=== PATIENT | female | born 1995 | race Caucasian/White ===

== ENCOUNTER 2018-03-18 09:32 | Emergency (ER) | payer BC, MEDICAID ==
[2018-03-18 09:44] VITALS: BP 109/64
--- NOTE | 2018-03-18 12:14 | EDM.PDOC ---
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 She states she has not felt any movement yet this am. She is 25 weeks gestation. Has had an uneventful thus far. No vaginal bleeding. No pain/cramping. She denies fever. States typically would note much more activity at this point of the day. Has not had any upper respiratory concerns, no cough, nausea/vomiting or urinary complaints. Onset: Today Duration: Hour(s): Location: Reports: Abdomen Associated Symptoms: Reports: No Other Symptoms - Related Data Allergies Allergy/AdvReac Type Severity Reaction Status Date / Time No Known Allergies Allergy Verified 03/18/18 09:44 Home Meds: Home Meds Pnv with Ca,No.72/Iron/Fa [Pnv Plus Multivit Tab] 1 tab PO DAILY [History] Past Medical History Respiratory History: Reports: Asthma Other Respiratory History: exercise induced.. 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: Psychiatric History: Reports: Anxiety, Depression Social & Family History - Family History Family Medical History: Noncontributory - Tobacco Use Smoking Status *Q: Current Every Day Smoker Years of Tobacco use: 7 Packs/Tins Daily: 0.5 - Caffeine Use Caffeine Use: Reports: Coffee ED ROS GENERAL - Review of Systems Review Of Systems: See Below Constitutional: Denies: Fever, Chills, Malaise, Weakness, Decreased Appetite HEENT: Reports: No Symptoms Respiratory: Reports: No Symptoms Cardiovascular: Reports: No Symptoms GI/Abdominal: Reports: No Symptoms ED EXAM - Physical Exam Exam: See Below Exam Limited By: No Limitations General Appearance: Alert, WD/WN, No Apparent Distress Ears: Normal External Exam, Normal TMs Nose: Normal Inspection, Normal Mucosa, No Blood Throat/Mouth: Normal Inspection, Normal Oropharynx Head: Normocephalic Neck: Normal Inspection, Supple, Non-Tender Respiratory/Chest: No Respiratory Distress, Lungs Clear, Normal Breath Sounds Cardiovascular: Regular Rate, Rhythm GI/Abdominal Exam: Normal Bowel Sounds Fundal Height In cm: 25 Heart Tones: Present Heart Tones per Min: 138 Movement: Active (In monitoring heart tones, did note movement by palpation as well.) Extremities: Normal Inspection, No Pedal Edema Neurological: Alert, Oriented Skin Exam: Warm, Dry Course - Vital Signs Last Recorded V/S: Last Vital Signs Temp 98.4 F 03/18/18 09:40 Pulse 75 03/18/18 09:40 Resp 16 03/18/18 09:40 BP 109/64 03/18/18 09:40 Pulse Ox 100 03/18/18 09:40 - Orders/Labs/Meds Orders: Active Orders 24 hr Category Date Time Status OB Ltd 1 or More Fetus [US] Stat Exams 03/18/18 10:23 Ordered - Re-Assessments/Exams Free Text/Narrative Re-Assessment/Exam: 03/18/18 Limited ultrasound done, good movement, lung expansion, heart tones at this point. Departure - Departure Time of Disposition: 12:13 Disposition: Home, Self-Care 01 Condition: Good Clinical Impression: Decreased movement - Discharge Information Forms: ED Department Discharge Additional Instructions: 1. Push fluids 2. Rest 3. Follow up with Kaitlyn as scheduled for usual care - My Orders Last 24 Hours: My Active Orders 03/18/18 10:23 OB Ltd 1 or More Fetus [US] Stat - Assessment/Plan Last 24 Hours: My Active Orders 03/18/18 10:23 OB Ltd 1 or More Fetus [US] Stat
== END 2018-03-18 12:20 | disposition home or self-care (01) ==
LOC: CC.ED 09:32
DX: O36.8120 Decreased fetal movements, second trimester, not applicable or unspecified (principal); O99.332 Smoking (tobacco) complicating pregnancy, second trimester; F17.210 Nicotine dependence, cigarettes, uncomplicated; Z3A.25 25 weeks gestation of pregnancy
CPT/HCPCS: 76815; 99284

== ENCOUNTER 2018-06-26 10:35 | Emergency (ER) | payer BC, MEDICAID ==
[2018-06-26 11:02] VITALS: BP 118/75
--- NOTE | 2018-06-26 11:02 | EDM.PDOC ---
ED HPI GENERAL MEDICAL PROBLEM - General Chief Complaint: General Stated Complaint: VAG BLEEDING Time Seen by Provider: 06/26/18 10:40 Source of Information: Reports: Patient History Limitations: Reports: No Limitations - History of Present Illness INITIAL COMMENTS - FREE TEXT/NARRATIVE: Is 8 days post and was doing well. Today about 0900 she started having severe cramps and has saturated 3 pads since being here. Did call EMS to pick her up due to the pain. Since being here she states that the pain has resolved and the bleeding has definitely slowed. She states that the delivery was normal. Onset: Sudden - Related Data Allergies Allergy/AdvReac Type Severity Reaction Status Date / Time No Known Allergies Allergy Verified 06/26/18 11:21 Home Meds: Home Meds Pnv with Ca,No.72/Iron/Fa [Pnv Plus Multivit Tab] 1 tab PO DAILY [History] Past Medical History Respiratory History: Reports: Asthma Other Respiratory History: exercise induced.. does not use inhaler [employer] History: Reports: Psychiatric History: Reports: Anxiety, Depression Social & Family History - Family History Family Medical History: Noncontributory - Caffeine Use Caffeine Use: Reports: Coffee ED ROS GENERAL - Review of Systems Review Of Systems: See Below Constitutional: Denies: Fever, Chills : Reports: No Symptoms ED EXAM, GENERAL - Physical Exam Exam: See Below Exam Limited By: No Limitations General Appearance: Alert, WD/WN, Mild Distress Respiratory/Chest: No Respiratory Distress, Lungs Clear, Normal Breath Sounds Cardiovascular: Regular Rate, Rhythm, No Edema (Female) Exam: Normal External Exam, Normal Speculum Exam, Normal Bimanual Exam, Cervical Discharge (small amount of dark red blod without any clots noted from cervical os. No other obvious source of bleeding noted.), Cervix Motion Tenderness Neurological: Alert, Oriented Skin Exam: Warm, Dry, Intact Course - Re-Assessments/Exams Free Text/Narrative Re-Assessment/Exam: 06/26/18 11:[address] Bella office who delivered her and it was suggested to do US and if no placenta retained could be discharged since the bleeding is subsiding. Will get US today. Departure - Departure Time of Disposition: 11:25 Disposition: Home, Self-Care 01 Condition: Good Clinical Impression: bleeding Qualifiers: hemorrhage type: delayed hemorrhage Qualified Code(s): O72.2 - Delayed and secondary hemorrhage - Discharge Information *PRESCRIPTION DRUG MONITORING PROGRAM REVIEWED*: Not Applicable *COPY OF PRESCRIPTION DRUG MONITORING REPORT IN PATIENT MARLENY: Not Applicable Additional Instructions: No heavy lifting Rest as much as possible If bleeding continues then should see Dr. Bella next week. Tylenol or advil as needed. - Problem List & Annotations (1) bleeding SNOMED Code(s): 36295449 Code(s): O72.1 - OTHER IMMEDIATE HEMORRHAGE Status: Acute Priority: High Current Visit: Yes Qualifiers: hemorrhage type: delayed hemorrhage Qualified Code(s) : O72.2 - Delayed and secondary hemorrhage - Problem List Review Problem List Initiated/Reviewed/Updated: Yes
== END 2018-06-26 11:30 | disposition home or self-care (01) ==
LOC: CC.ED 10:35
DX: O72.2 Delayed and secondary postpartum hemorrhage (principal); Z79.899 Other long term (current) drug therapy
CPT/HCPCS: 76830; 99283

== ENCOUNTER → 2019-12-23 | Day surgery (SDC) | payer BC ==
[~2019-12-23] MED LIST: Dexamethasone 4 MG/ML 5 ML MDV IV ONE; HYDROmorphone 1 MG/ML Syringe IV ONE; Ketorolac 30 MG/ML SDV IVPUSH ONE; Lactated Ringers 1,000 ML IV SCH; Midazolam 1 MG/ML 2 ML SDV IV ONE; Ondansetron 4 MG/2 ML SDV IV ONE; Propofol 200 MG/20 ML SDV IV ONE; fentaNYL 100 MCG/2 ML SDV IV ONE
[2019-12-23 13:48] VITALS: BP 119/67; PULSE 78
--- NOTE | 2019-12-23 15:07 | OR ---
DATE OF OPERATION: 12/23/2019 PREOPERATIVE DIAGNOSIS: RIGHT CARPAL TUNNEL SYNDROME. POSTOPERATIVE DIAGNOSIS: RIGHT CARPAL TUNNEL SYNDROME. SURGEON: Marlo Armando MD PROCEDURE: RELEASE OF RIGHT CARPAL TUNNEL SYNDROME. ANESTHESIA: General. ESTIMATED BLOOD LOSS: Minimum. SPECIMEN: None. INDICATIONS: This is a 24-year-old female, who has an EMG-proven symptomatic bilateral carpal tunnel syndrome, the right is worse than the left. DESCRIPTION OF PROCEDURE: After adequate preparation, a longitudinal incision was made along the wrist and down into the palm. This was taken by sharp dissection all the way down to the transverse carpal ligament. This was then sharply incised and the ligament was transected both proximally and distally. There was only minor bleeding. Packing was used for tamponade pressure. This then seemed to quell all the bleeding. The nerve tendon sheath did not seem to be too hyperemic or swollen. No other abnormalities were noted. The skin was closed with 2-0 nylon sutures. BPB/BRAULIOL /[id number]
== END ==
LOC: CC.SDS 08:34
PROVIDERS: ATTEND Surgery
DX: G56.03 Carpal tunnel syndrome, bilateral upper limbs (principal); F41.9 Anxiety disorder, unspecified; J45.909 Unspecified asthma, uncomplicated; F98.8 Other specified behavioral and emotional disorders with onset usually occurring in childhood and adolescence; F17.210 Nicotine dependence, cigarettes, uncomplicated; F32.9 Major depressive disorder, single episode, unspecified; Z11.59 Encounter for screening for other viral diseases; Z79.899 Other long term (current) drug therapy
CPT/HCPCS: 01810; 36415; 64721; 84703; 87635; J1100; J1170; J1885; J2250; J2405; J2704; J3010; J7120; U0002

== ENCOUNTER → 2020-02-24 | Day surgery (SDC) | payer BC ==
[~2020-02-24] MED LIST changes: +Ketamine 200 MG/20 ML MDV IV ONE; -Lactated Ringers 1,000 ML IV SCH; +Lidocaine 1% 30 ML SDV ONE; +ePHEDrine 50 MG/ML SDV IV ONE
[2020-02-24] MEDS: Lactated Ringers 1,000 ML IV SCH (10:08)
[2020-02-24 15:35] VITALS: BP 105/58; PULSE 87
--- NOTE | 2020-02-24 15:37 | OR ---
DATE OF OPERATION: 02/24/2020 PREOPERATIVE DIAGNOSIS: LEFT CARPAL TUNNEL SYNDROME. POSTOPERATIVE DIAGNOSIS: LEFT CARPAL TUNNEL SYNDROME. SURGEON: Marlo Armando MD PROCEDURE: RELEASE OF LEFT CARPAL TUNNEL SYNDROME. ANESTHESIA: General. ESTIMATED BLOOD LOSS: None. SPECIMEN: None. INDICATIONS: This 25-year-old female has had bilateral carpal tunnel syndrome documented by the EMG. She had a right carpal tunnel repair 2 months ago and is now here for her left one to be repaired. DESCRIPTION OF PROCEDURE: After adequate preparation, a longitudinal incision was made along the palmar crease just above the carpal area. This was taken down to the transverse carpal ligament, which was sharply incised. A hemostat was placed underneath the carpal tunnel to protect the median nerve and by sharp dissection the remaining distal end of the transverse carpal ligament was incised. This freed up the entire space. She did have a moderate amount of bleeding from some of the muscle tissue overlying the proximal end. This was treated with mild cautery and pressure. The hemostasis seemed to be secured. 1% plain xylocaine was used to infiltrate the transverse carpal ligament and the skin was closed with interrupted 0 nylon sutures. BPB/MODL /[id number]
== END ==
LOC: CC.SDS 09:33
PROVIDERS: ATTEND Surgery
DX: G56.02 Carpal tunnel syndrome, left upper limb (principal); F41.9 Anxiety disorder, unspecified; F32.9 Major depressive disorder, single episode, unspecified; F98.8 Other specified behavioral and emotional disorders with onset usually occurring in childhood and adolescence; J45.909 Unspecified asthma, uncomplicated; F17.210 Nicotine dependence, cigarettes, uncomplicated; Z79.899 Other long term (current) drug therapy
CPT/HCPCS: 36415; 84703; J1100; J1170; J1885; J2250; J2405; J2704; J3010; J7120

== ENCOUNTER 2021-01-01 10:58 | Emergency (ER) | payer BC ==
[2021-01-01 11:14] VITALS: BP 120/80; PULSE 95
--- NOTE | 2021-01-01 11:49 | EDM.PDOC ---
ED HPI GENERAL MEDICAL PROBLEM - General Chief Complaint: Genitourinary Problem Stated Complaint: BLADDER PAIN Time Seen by Provider: 01/01/21 11:35 Source of Information: Reports: Patient History Limitations: Reports: No Limitations - History of Present Illness INITIAL COMMENTS - FREE TEXT/NARRATIVE: Belinda is a 25 year old female who presents to the ED with c/o suprapubic te nderness and burning when she urinates. She reports symptoms started this morning, however she did notice some hematuria over the weekend. She denies any fever, chills, N/V/D, flank pain or decreased appetite. Onset: Today Duration: Getting Worse Location: Reports: Pelvis Severity: Moderate Improves with: Reports: None Associated Symptoms: Denies: Confusion, Fever/Chills, Loss of Appetite, Malaise, Nausea/Vomiting Bladder Pain Score (Numeric/FACES): 7 - Related Data Allergies Allergy/AdvReac Type Severity Reaction Status Date / Time No Known Allergies Allergy Verified 01/01/21 11:06 Home Meds: Home Meds Albuterol [Proair HFA] 2 inh INH Q4H PRN 12/21/19 [History] FLUoxetine HCl [Prozac] 40 mg PO DAILY 12/21/19 [History] busPIRone HCl [Buspirone HCl] 10 mg PO BID 12/21/19 [History] medroxyPROGESTERone Acetate [Depo-Provera] 150 mg IM Q3M 12/21/19 [History] Dexmethylphenidate HCl [Dexmethylphenidate HCl ER] 20 mg PO DAILY 01/01/21 [History] Nitrofurantoin Monohyd/M-Cryst [Macrobid 100 mg Capsule] 100 mg PO BID 7 Days #14 capsule 01/01/21 [Rx] Past Medical History - Past Health History Medical/Surgical History: Denies Medical/Surgical History Respiratory History: Reports: Asthma Other Respiratory History: exercise induced.. does not use inhaler [employer] History: Reports: Psychiatric History: Reports: Anxiety, Depression - Past Surgical History Musculoskeletal Surgical History: Reports: Carpal Tunnel Social & Family History - Family History Family Medical History: No Pertinent Family History - Tobacco Use Tobacco Use Status *Q: Never Tobacco User - Caffeine Use Caffeine Use: Reports: Coffee ED ROS GENERAL - Review of Systems Review Of Systems: Comprehensive ROS is negative, except as noted in HPI. ED EXAM, RENAL/ - Physical Exam Exam: See Below Exam Limited By: No Limitations General Appearance: Alert, WD/WN, No Apparent Distress Neck: Normal Inspection, Supple, Non-Tender, Full Range of Motion Respiratory/Chest: No Respiratory Distress, Lungs Clear, Normal Breath Sounds, No Accessory Muscle Use, Chest Non-Tender Cardiovascular: Normal Peripheral Pulses, Regular Rate, Rhythm, No Edema, No Ga llop, No JVD, No Murmur, No Rub GI/Abdominal: Normal Bowel Sounds, Soft, No Distention, No Mass, Tender (suprapubic). No: Guarding, Rigid, Rebound Back Exam: No: CVA Tenderness (L), CVA Tenderness (R) Neurological: Alert, Oriented, CN II-XII Intact, Normal Cognition, Normal Gait, Normal Reflexes, No Motor/Sensory Deficits Psychiatric: Normal Affect, Normal Mood Course - Vital Signs Last Recorded V/S: Last Vital Signs Temp 98.3 F 01/01/21 11:05 Pulse 95 01/01/21 11:05 Resp 16 01/01/21 11:05 BP 120/80 01/01/21 11:05 Pulse Ox 98 01/01/21 11:05 - Orders/Labs/Meds Orders: Active Orders 24 hr Category Date Time Status CULTURE URINE [RM] Stat Lab 01/01/21 11:27 Ordered Labs: Laboratory Tests 01/01/21 Range/Units 11:14 Urine Color Yellow (YELLOW) Urine Appearance Cloudy (CLEAR) Urine pH 5.5 (4.5-8.0) Ur Specific [place] >= 1.030 H (1.003-1.020) Urine Protein 30 H (NEGATIVE) mg/dL Urine Glucose (UA) Negative (NEGATIVE) mg/dL Urine Ketones Negative (NEGATIVE) mg/dL Urine Occult Blood Moderate H (NEGATIVE) Urine Nitrite Positive H (NEGATIVE) Urine Bilirubin Negative (NEGATIVE) Urine Urobilinogen 0.2 (0.2-1.0) EU/dL Ur Leukocyte Esterase Moderate H (NEGATIVE) Urine RBC 10-20 H (0-5) /HPF Urine WBC >100 H (0-5) /HPF Urine WBC Clumps Few H (NOT SEEN) /HPF Ur Epithelial Cells Few H (NOT SEEN) /HPF Urine Bacteria Many H (NOT SEEN) /HPF Departure - Departure Time of Disposition: 11:47 Disposition: Home, Self-Care 01 Condition: Good Clinical Impression: UTI, Urinary tract infectious disease - Discharge Information *PRESCRIPTION DRUG MONITORING PROGRAM REVIEWED*: Not Applicable *COPY OF PRESCRIPTION DRUG MONITORING REPORT IN PATIENT MARLENY: Not Applicable Prescriptions: Nitrofurantoin Monohyd/M-Cryst [Macrobid 100 mg Capsule] 100 mg PO BID 7 Days #14 capsule Instructions: Urinary Tract Infection, Adult, [id number] Forms: ED Department Discharge Additional Instructions: - Macrobid (nitrofurantoin) 1 tablet twice daily x 7 days - Rest and push fluids - AZO as needed for dysuria - Tylenol or ibuprofen as needed - My office will notify you of urine culture results - Follow up for recheck if symptoms worsen or do not seem to be improving Sepsis Event Note (ED) - Focused Exam Vital Signs: Vital Signs Temp Pulse Resp BP Pulse Ox 01/01/21 11:05 98.3 F 95 16 120/80 98 - Problem List & Annotations (1) UTI, Urinary tract infectious disease SNOMED Code(s): 97495226 Code(s): N39.0 - URINARY TRACT INFECTION, SITE NOT SPECIFIED Status: Acute - My Orders Last 24 Hours: My Active Orders 01/01/21 11:27 CULTURE URINE [RM] Stat - Assessment/Plan Last 24 Hours: My Active Orders 01/01/21 11:27 CULTURE URINE [RM] Stat Assessment:: UTI Plan: Patient present to ED with c/o dysuria and suprapubic tenderness with onset this morning. UA positive. Will start patient on Macrobid 100 mg BID x 7 days. Recommend rest and push fluids. AZO as needed. WIll follow up pending culture results. She is already scheduled for follow up with her PCP tomorrow. Return to ED for emergent needs. Patient discharged in satisfactory condition.
== END 2021-01-01 11:55 | disposition home or self-care (01) ==
LOC: CC.ED 10:58
DX: N39.0 Urinary tract infection, site not specified (principal)
CPT/HCPCS: 81001; 87086; 87088; 87186; 99283

== ENCOUNTER 2022-03-02 09:10 | Emergency (ER) | payer BC ==
[2022-03-02 09:14] VITALS: BP 115/69; PULSE 108
[2022-03-02] MEDS: Sodium Chloride 0.9% 1,000 ML IV ONE (09:35)
[2022-03-02] MEDS: Acetaminophen 500 MG Tab PO ONE (09:39)
[2022-03-02] MEDS: Ondansetron 4 MG/2 ML SDV IVPUSH PRN (09:39)
== END 2022-03-02 10:38 | disposition home or self-care (01) ==
LOC: CC.ED 09:10
DX: J06.9 Acute upper respiratory infection, unspecified (principal); Z20.822 Contact with and (suspected) exposure to COVID-19; Z79.899 Other long term (current) drug therapy
CPT/HCPCS: 96361; 96374; 99283; 99283-25; A9270-GY; J2405; J7030; U0002

== ENCOUNTER 2023-04-10 10:18 | Emergency (ER) | payer SELFPAY ==
[2023-04-10 10:27] VITALS: BP 111/57; PULSE 90
[2023-04-10 10:34] LABS: APPEARANCE,URINE SLIGHTLY CLOUDY (CLEAR); BILIRUBIN,URINE SMALL (NEGATIVE); COLOR,URINE YELLOW (YELLOW); GLUCOSE,URINE NEGATIVE (NEGATIVE); KETONES,URINE NEGATIVE (NEGATIVE); LEUKOCYTE ESTERASE,URINE LARGE (NEGATIVE); NITRITE,URINE POSITIVE (NEGATIVE); OCCULT BLOOD,URINE LARGE (NEGATIVE); PROTEIN,URINE 100 mg/dL (NEGATIVE)
[2023-04-10 10:40] LABS: BACTERIA,URINE MODERATE /HPF (NOT SEEN); EPITHELIAL CELLS,URINE OCCASIONAL /HPF (NOT SEEN); MUCUS,URINE OCCASIONAL /HPF (NOT SEEN); WBC,URINE >100 /HPF (0-5)
[2023-04-10] MEDS ORDERED: Take Home: Sulfamethoxazole/Trimethoprim 800-160 MG Tab, 6 Tab Pack PO ONE (10:43)
[2023-04-10] MEDS ORDERED: Take Home: Phenazopyridine 95 MG Tab, 4 Tab Pack PO ONE (10:46)
== END 2023-04-10 11:05 | disposition home or self-care (01) ==
LOC: CC.ED 10:18
DX: N39.0 Urinary tract infection, site not specified (principal); J45.909 Unspecified asthma, uncomplicated; Z79.899 Other long term (current) drug therapy
CPT/HCPCS: 81001; 87086; 87088; 87186; 99283; A9270-GY

== ENCOUNTER 2024-04-06 13:24 | Emergency (ER) | payer OTHER ==
[2024-04-06 13:31] VITALS: BP 112/78; PULSE 92
[2024-04-06] MEDS: Lactated Ringers 1,000 ML IV ONE (13:49)
[2024-04-06] MEDS: Ondansetron 4 MG/2 ML SDV IVPUSH PRN (13:49)
[2024-04-06 13:56] LABS: BASOPHILS ABSOLUTE AUTO 0.01 10^3/uL (0.00-0.50); BASOPHILS PERCENT AUTO 0.1 % (0-1); EOSINOPHILS ABSOLUTE AUTO 0.02 10^3/uL (0.00-1.50); EOSINOPHILS PERCENT AUTO 0.2 % (0-6); HEMOGLOBIN 14.4 g/dL (12.0-16.0); IMMATURE GRAN ABSOLUTE AUTO 0.01 10^3/uL (0.00-0.49); IMMATURE GRAN PERCENT AUTO 0.1 % (0.0-4.9); LYMPHOCYTES ABSOLUTE AUTO 0.48 10^3/uL (0.60-5.00); LYMPHOCYTES PERCENT AUTO 4.9 % (24-44); MEAN CORPUSCULAR HEMOGLOBIN 31.6 pg (27.0-32.0); MEAN CORPUSCULAR HGB CONC 33.5 g/dL (32.0-36.0); MEAN CORPUSCULAR VOLUME 94.3 fL (83.0-97.0); MONOCYTES ABSOLUTE AUTO 0.49 10^3/uL (0.00-1.50); NEUTROPHILS ABSOLUTE AUTO 8.83 x10^3/uL (1.80-8.00); NEUTROPHILS PERCENT AUTO 89.7 % (41-71); PLATELET COUNT,PLT 241 10^3/uL (150-400); RED BLOOD CELL COUNT 4.56 x10^6/uL (4.00-5.50); WHITE BLOOD CELL COUNT,WBC 9.8 10^3/uL (4.0-11.0)
[2024-04-06 13:59] LABS: APPEARANCE,URINE CLEAR (CLEAR); BILIRUBIN,URINE NEGATIVE (NEGATIVE); COLOR,URINE YELLOW (YELLOW); GLUCOSE,URINE NEGATIVE (NEGATIVE); KETONES,URINE NEGATIVE (NEGATIVE); LEUKOCYTE ESTERASE,URINE TRACE (NEGATIVE); NITRITE,URINE NEGATIVE (NEGATIVE); OCCULT BLOOD,URINE TRACE-INTACT (NEGATIVE); PH,URINE 8.5 (4.5-8.0); PROTEIN,URINE TRACE mg/dL (NEGATIVE); UROBILINOGEN,URINE 0.2 EU/dL (0.2-1.0)
[2024-04-06 14:05] LABS: BACTERIA,URINE OCCASIONAL /HPF (NOT SEEN); EPITHELIAL CELLS,URINE FEW /HPF (NOT SEEN); MUCUS,URINE RARE /HPF (NOT SEEN); RBC,URINE NOT SEEN /HPF (0-5)
[2024-04-06 14:09] LABS: ALBUMIN 3.5 g/dL (3.4-5.0); BILIRUBIN TOTAL 1.4 mg/dL (0.0-1.0); C-REACTIVE PROTEIN 3.38 mg/dL (<=0.50); CALCIUM 8.4 mg/dL (8.4-10.1); CREATININE 0.9 mg/dL (0.6-1.0); EST CRCL DRUG DOSING (CG) 80.36 mL/min; MAGNESIUM 1.6 mg/dL (1.8-2.4); POTASSIUM,K 3.6 mEq/L (3.5-5.0); PROTEIN TOTAL,TP 6.4 g/dL (6.4-8.2)
[2024-04-06] MEDS: Magnesium Sulfate/Water Premix 2 GM in Premix Bag 1 BAG IV ONE (14:26)
[2024-04-06] MEDS: Sodium Chloride 0.9% 1,000 ML IV ONE (14:49)
== END 2024-04-06 16:50 | disposition home or self-care (01) ==
LOC: CC.ED 13:24
DX: R11.2 Nausea with vomiting, unspecified (principal); R19.7 Diarrhea, unspecified; J45.909 Unspecified asthma, uncomplicated; F17.210 Nicotine dependence, cigarettes, uncomplicated; Z79.899 Other long term (current) drug therapy
CPT/HCPCS: 36415; 80053; 81001; 83735; 85025; 86140; 87086; 96361; 96365; 96366; 96375; 99284; 99284-25; J2405; J3475; J7030; J7120

== ENCOUNTER 2025-03-25 11:56 | Day surgery (SDC) | payer BC ==
[2025-03-25] MEDS: Lactated Ringers 1,000 ML IV SCH (12:11)
[2025-03-25] MEDS ORDERED: Propofol 200 MG/20 ML SDV ONE ×2 (12:35)
[2025-03-25] MEDS ORDERED: Midazolam 1 MG/ML 2 ML SDV ONE (12:35)
[2025-03-25] MEDS ORDERED: Ketamine 200 MG/20 ML MDV ONE (12:35)
[2025-03-25] MEDS ORDERED: fentaNYL 50 MCG/ML SDV ONE ×2 (12:35)
[2025-03-25] MEDS ORDERED: Ondansetron 4 MG/2 ML SDV ONE (12:35)
[2025-03-25 13:44] VITALS: BP 112/75; PULSE 73
== END 2025-03-25 13:40 | disposition home or self-care (01) ==
LOC: CC.SDS 11:56
PROVIDERS: ATTEND Family Medicine
DX: K62.0 Anal polyp (principal); K52.9 Noninfective gastroenteritis and colitis, unspecified; J45.909 Unspecified asthma, uncomplicated; F32.A Depression, unspecified; F41.9 Anxiety disorder, unspecified; Z79.899 Other long term (current) drug therapy
CPT/HCPCS: 00811; J2250; J2405; J2704; J3010; J3490; J7120

== ENCOUNTER 2025-03-27 12:42 | Emergency (ER) | payer BC ==
[2025-03-27 12:57] VITALS: BP 130/81; PULSE 86
[2025-03-27] MEDS: Ketorolac 30 MG/ML SDV IM ONE (13:50)
[2025-03-27] MEDS: AMOXICILLIN 250 MG PO ONE (13:50)
== END 2025-03-27 13:55 | disposition home or self-care (01) ==
LOC: CC.ED 12:42
DX: J02.9 Acute pharyngitis, unspecified (principal); Z79.899 Other long term (current) drug therapy
CPT/HCPCS: 87651; 96372; 99283; A9270-GY; J1885